=== PATIENT | male | born 1975 | race Caucasian/White ===

== ENCOUNTER 2022-12-21 18:27 | Emergency (ER) | payer MEDICAID ==
[~2022-12-21] VITALS: Ht 182.9 cm; Wt 88.5 kg
[2022-12-21] MEDS ORDERED: SULF1TAB48 PO (20:04)
[2022-12-21] MEDS ORDERED: SULFAMETH/TRIMETH 800/160 MG TABLET ONE (20:10)
[2022-12-21 20:15] VITALS: BP 145/99; TEMP 98.5; O2SAT 99
[2022-12-21] MEDS ORDERED: SULFAMETH/TRIMETH 800/160 MG TABLET PO ONE (20:15)
== END 2022-12-21 20:16 | disposition home or self-care (01) ==
LOC: ER 18:32
DX: L02.416 Cutaneous abscess of left lower limb (principal); L03.116 Cellulitis of left lower limb; F17.210 Nicotine dependence, cigarettes, uncomplicated; Z79.899 Other long term (current) drug therapy
CPT/HCPCS: A4606; A4663

== ENCOUNTER 2024-07-19 06:25 | Emergency (ER) | payer MEDICAID, OTHER ==
[~2024-07-19] VITALS: Ht 185.4 cm; Wt 83.9 kg
[~2024-07-19 06:25] MED LIST: SULF1TAB48 PO
[2024-07-19] MEDS ORDERED: BICT1TAB PO (06:56)
[2024-07-19 09:15] VITALS: BP 131/75; O2SAT 95
== END 2024-07-19 09:18 | disposition home or self-care (01) ==
LOC: ER 06:25
DX: L03.116 Cellulitis of left lower limb (principal); F17.210 Nicotine dependence, cigarettes, uncomplicated; Z79.899 Other long term (current) drug therapy; Z86.19 Personal history of other infectious and parasitic diseases; Z88.0 Allergy status to penicillin
CPT/HCPCS: 73590; A4606; A4663